=== PATIENT | female | born 1950 | race Caucasian/White ===

== ENCOUNTER 2016-05-04 20:20 | Emergency (ER) | payer OTHER ==
[2016-05-04] MEDS ORDERED: IPRATROPIUM/ALBUTEROL 3 ML NEB INH STA (20:36)
[2016-05-04] MEDS ORDERED: diltiaZEM INJ 5 MG/ML VIAL IVP STA (20:44)
[2016-05-04] MEDS ORDERED: IPRATROPIUM/ALBUTEROL 3 ML NEB INH ONE (20:52)
[2016-05-04] MEDS ORDERED: diltiaZEM INJ 5 MG/ML VIAL ONE (20:53)
[2016-05-04] MEDS ORDERED: PROPOFOL 200 MG/20 ML VIAL IVP ONE (21:47)
[2016-05-04] MEDS ORDERED: MIDAZOLAM 50 MG/10 ML VIAL ONE (21:47)
[2016-05-04] MEDS ORDERED: MIDAZOLAM 2 MG/2 ML VIAL IVP STA (21:50)
[2016-05-04] MEDS ORDERED: PROPOFOL 200 MG/20 ML VIAL IVP STA (21:51)
[2016-05-04] MEDS ORDERED: LEVALBUTEROL 1.25 MG INH STA (22:59)
[2016-05-04] MEDS ORDERED: LEVALBUTEROL 1.25 MG INH ONE (23:14)
== END 2016-05-05 00:04 | disposition home or self-care (01) ==
DX: I48.91 Unspecified atrial fibrillation (principal); J45.901 Unspecified asthma with (acute) exacerbation; I50.9 Heart failure, unspecified; Z79.01 Long term (current) use of anticoagulants
CPT/HCPCS: 36415; 71020; 80053; 81003; 83690; 83880; 84484; 85025; 85610; 92960; 93005; 93010; 94640; 96374; 99284; 99285; A9270; J7620

== ENCOUNTER 2016-09-05 14:27 | Outpatient (CLI) | payer OTHER ==
--- NOTE | 2016-09-15 15:42 | Mammography Report ---
DIGITAL SCREENING MAMMOGRAM: 09/05/2016 CLINICAL INDICATION: A 66-year-old with family history of breast cancer, history of benign right tressa ast biopsy for screening. COMPARISON: Films from [place], [place] dated 02/09/2015, [facility] dated 07/2013, 2012, 12/2010, 10/2008, 12/2006. TECHNIQUE: Routine CC and MLO projections were obtained of the breasts. FINDINGS: The breasts again demonstrate scattered fibroglandular densities bilaterally. Post-biopsy changes in the right breast are stable. No suspicious masses, clustered microcalcifications, or reg ions of architectural distortion are identified. IMPRESSION: BENIGN FINDINGS. RECOMMENDATION: Routine annual screening unless otherwise clinically indicated. BIRADS CATEGORY 2 - BENIGN FINDINGS. STANDARD QUALIFYING STATEMENTS 1. This examination was reviewed with the aid of Computer-Aided Detection (CAD). 2. A negative or benign imaging report should not delay biopsy if clinically suspicious findings are present. Consider surgical consultation if warranted. More than 5% of cancers are not identified by i maging. 3. Dense breasts may obscure an underlying neoplasm. JOB #: [id number] EXT JOB #:[id number]
== END 2016-09-05 14:28 | disposition home or self-care (01) ==
LOC: DI 14:27
PROVIDERS: ATTEND Physician Assistant Medical
DX: Z12.31 Encounter for screening mammogram for malignant neoplasm of breast (principal); Z80.3 Family history of malignant neoplasm of breast
CPT/HCPCS: 77067

== ENCOUNTER 2017-04-07 15:15 | Outpatient (CLI) | payer MEDICARE ==
[2017-04-07 15:56] LABS: T4 (THYROXINE) 5.55 ug/dL (6.09-12.23)
[2017-04-07 16:03] LABS: FREE T4 (FREE THYROXINE) 0.7 ng/dL (0.58-1.64)
== END 2017-04-07 15:16 | disposition home or self-care (01) ==
LOC: LAB 15:15
PROVIDERS: ATTEND Internal Medicine Cardiovascular Disease
DX: Z51.81 Encounter for therapeutic drug level monitoring (principal); Z79.899 Other long term (current) drug therapy
CPT/HCPCS: 36415; 84436; 84439; 84481

== ENCOUNTER 2017-11-10 09:16 | Outpatient (CLI) | payer MEDICARE ==
[2017-11-10 09:44] LABS: BASOPHILS # (AUTO) 0.1 10^3/uL (0.0-0.1); EOSINOPHILS # (AUTO) 0.1 10^3/uL (0.0-0.7); EOSINOPHILS % (AUTO) 2.4 %; HGB - HEMOGLOBIN 13.1 g/dL (12.0-16.0); LYMPHOCYTES # (AUTO) 1.8 10^3/uL (1.5-3.5); LYMPHOCYTES % (AUTO) 34.8 %; MEAN CORPUSCULAR HEMOGLOBIN 30.4 pg (27.0-31.0); MEAN CORPUSCULAR HGB CONC 33.7 g/dL (32.0-36.0); MEAN CORPUSCULAR VOLUME 90.2 fL (81.0-99.0); MEAN PLATELET VOLUME 8.4 fL (7.9-10.8); MONOCYTES # (AUTO) 0.5 10^3/uL (0.0-1.0); MONOCYTES % (AUTO) 9.8 %; NEUTROPHILS # (AUTO) 2.6 10^3/uL (1.5-6.6); PLT - PLATELET COUNT 271 10^3/uL (130-450); RED CELL DISTRIBUTION WIDTH 14.5 % (12.0-15.0); WHITE BLOOD COUNT 5.1 x10^3/uL (4.8-10.8)
[2017-11-10 10:04] LABS: ALBUMIN/GLOBULIN RATIO 1.5 (1.0-2.2); ALKALINE PHOSPHATASE 49 IU/L (42-121); ALT ALANINE AMINOTRANSFERASE 18 IU/L (10-60); AST ASPARTATE AMINOTRANSFERASE 16 IU/L (10-42); BILIRUBIN,TOTAL 0.5 mg/dL (0.2-1.0); BUN - BLOOD UREA NITROGEN 13 mg/dL (6-20); CALCIUM 9.2 mg/dL (8.5-10.3); CARBON DIOXIDE - CO2 29 mmol/L (21-32); CHLORIDE 103 mmol/L (101-111); CHOL/HDL RATIO 2.9 (<4.4); CHOLESTEROL 165 mg/dL; CREATININE 0.9 mg/dL (0.4-1.0); GFR - MDRD 62 (>89); GLUCOSE 99 mg/dL (70-100); HDL CHOLESTEROL 57 mg/dL; LDL CHOLESTEROL,CALCULATED 89 mg/dL; LDL/HDL RATIO 1.6 (<4.4); SODIUM 138 mmol/L (135-145); TOTAL PROTEIN 6.7 g/dL (6.7-8.2); VLDL CHOLESTEROL 19 mg/dL
[2017-11-11 10:01] LABS: HEPATITIS C ANTIBODY NON-REACTIVE (NON-REACTIVE)
== END 2017-11-10 09:17 | disposition home or self-care (01) ==
LOC: LAB 09:16
PROVIDERS: ATTEND Physician Assistant Medical
DX: Z79.899 Other long term (current) drug therapy (principal); E55.9 Vitamin D deficiency, unspecified; I48.91 Unspecified atrial fibrillation; D64.9 Anemia, unspecified; Z13.818 Encounter for screening for other digestive system disorders
CPT/HCPCS: 36415; 80053; 80061; 82306; 83721; 84443; 85025; 86803

== ENCOUNTER 2017-12-03 07:48 | Outpatient (CLI) | payer MEDICARE ==
--- NOTE | 2017-12-04 09:36 | Mammography Report ---
Reason: SCREENING MAMMO Procedure Date: 12/03/2017 Accession Number: [id number] / [id number] Procedure: TORI - Screening Mammo Dig Bilat CPT Code: FULL RESULT: EXAM: Screening Mammo Dig Bilat DATE: 12/03/2017 8:20 AM CLINICAL HISTORY: Screening mammogram TECHNIQUE: Bilateral CC and MLO views were obtained. COMPARISON: Mammogram 09/05/2016 FINDINGS: There are scattered fibroglandular densities. There are benign-appearing lymph nodes. No suspicious masses, clustered microcalcifications, or regions of architectural distortion are identified. IMPRESSION: Benign findings RECOMMENDATION: Routine annual screening unless otherwise clinically indicated. BIRADS CATEGORY 2: Benign findings STANDARD QUALIFYING STATEMENTS: 1. This examination was reviewed with the aid of Computer-Aided Detection (CAD). 2. A negative or benign imaging report should not delay biopsy if clinically suspicious findings are present. Consider surgical consultation if warrented. More than 5% of cancers are not identified by imaging. 3. Dense breasts may obscure an underlying neoplasm.
== END 2017-12-03 07:49 | disposition home or self-care (01) ==
LOC: DI 07:48
PROVIDERS: ATTEND Physician Assistant Medical
DX: Z12.31 Encounter for screening mammogram for malignant neoplasm of breast (principal)
CPT/HCPCS: 77067

== ENCOUNTER 2017-12-03 07:50 | Outpatient (CLI) | payer MEDICARE ==
--- NOTE | 2017-12-03 13:59 | Ultrasound Report ---
Reason: ELEVATED TSH Procedure Date: 12/03/2017 Accession Number: [id number] / [id number] Procedure: US - Head or Neck Soft Tissue CPT Code: FULL RESULT: EXAM: THYROID ULTRASOUND EXAM DATE: 12/03/2017 09:00 AM. CLINICAL HISTORY: ELEVATED TSH. COMPARISON: None. TECHNIQUE: Real time sonographic imaging of the thyroid was performed by the overcoil stepper. Multiple sales representative trainee static images were saved for review. FINDINGS: THYROID GLAND: Right Lobe: 4.4 x 2.0 x 1.8 cm, volume 8 cc. Normal background echotexture. Right Lobe Nodules: None. Left Lobe: 4.3 x 2.1 x 1.6 cm, volume 8 cc. Normal background echotexture. Left Lobe Nodules: Lower lobe 4 mm hypoechoic solid, smooth margins, wider than tall. No calcifications. Isthmus: 0.5 cm AP. Isthmic Nodules: None. LYMPH NODES: No adenopathy demonstrated in the central or lateral compartment. IMPRESSION: 4 mm left thyroid nodule Tirads 4. Moderately suspicious features but small size. FNA if greater than or equal to 1.5 cm. Follow if greater than or equal to 1 cm. Management recommendations are based on 2015 [place] [employer] Management Guidelines for Adult Patients with Thyroid Nodules and Differentiated Thyroid Cancer. RADIA
== END 2017-12-03 07:51 | disposition home or self-care (01) ==
LOC: DI 07:50
PROVIDERS: ATTEND Physician Assistant Medical
DX: E04.1 Nontoxic single thyroid nodule (principal)
CPT/HCPCS: 76536

== ENCOUNTER 2018-01-25 08:40 | Outpatient (CLI) | payer MEDICARE ==
[2018-01-25 14:44] LABS: THYROID STIMULATING HORMONE 5.8 uIU/mL (0.34-5.60)
== END 2018-01-25 08:41 | disposition home or self-care (01) ==
LOC: LAB.R 08:40
PROVIDERS: ATTEND Physician Assistant Medical
DX: E04.1 Nontoxic single thyroid nodule (principal); E03.9 Hypothyroidism, unspecified; Z79.899 Other long term (current) drug therapy
CPT/HCPCS: 84439; 84443; 84481

== ENCOUNTER 2018-02-03 15:17 | Outpatient (CLI) | payer MEDICARE ==
[2018-02-03 15:46] LABS: INR 2.9 (0.8-1.2); PT - PROTHROMBIN TIME 31.8 secs (9.9-12.6)
== END 2018-02-03 15:18 | disposition home or self-care (01) ==
LOC: LAB 15:17
PROVIDERS: ATTEND Internal Medicine
DX: Z79.01 Long term (current) use of anticoagulants (principal); I48.91 Unspecified atrial fibrillation
CPT/HCPCS: 36415; 85610

== ENCOUNTER 2018-02-09 14:29 | Outpatient (CLI) | payer MEDICARE | END 2018-02-09 14:30 | disposition home or self-care (01) | LOC: LAB 14:29 | PROVIDERS: ATTEND Internal Medicine | DX: Z79.01 Long term (current) use of anticoagulants (principal); I48.91 Unspecified atrial fibrillation | CPT/HCPCS: 85610 ==

== ENCOUNTER 2018-02-16 15:35 | Outpatient (CLI) | payer MEDICARE | END 2018-02-16 15:36 | disposition home or self-care (01) | LOC: LAB 15:35 | PROVIDERS: ATTEND Internal Medicine | DX: Z79.01 Long term (current) use of anticoagulants (principal); I48.91 Unspecified atrial fibrillation | CPT/HCPCS: 85610 ==

== ENCOUNTER 2018-03-08 08:00 | Outpatient (CLI) | payer MEDICARE ==
[2018-03-08 12:34] LABS: THYROID STIMULATING HORMONE 4.73 uIU/mL (0.34-5.60)
[2018-03-08 12:38] LABS: FREE T4 (FREE THYROXINE) 1.06 ng/dL (0.58-1.64)
== END 2018-03-08 23:59 | disposition home or self-care (01) ==
LOC: LAB.R 08:00
PROVIDERS: ATTEND Physician Assistant Medical
DX: E04.1 Nontoxic single thyroid nodule (principal); Z79.899 Other long term (current) drug therapy; E03.9 Hypothyroidism, unspecified
CPT/HCPCS: 84439; 84443; 84481

== ENCOUNTER 2018-05-11 08:00 | Outpatient (CLI) | payer MEDICARE | END 2018-05-11 23:59 | disposition home or self-care (01) | LOC: LAB.R 08:00 | PROVIDERS: ATTEND Physician Assistant Medical | DX: E03.9 Hypothyroidism, unspecified (principal); Z79.899 Other long term (current) drug therapy | CPT/HCPCS: 84443 ==

== ENCOUNTER 2018-05-21 15:32 | Outpatient (CLI) | payer MEDICARE ==
--- NOTE | 2018-05-22 23:55 | Ultrasound Report ---
Reason: THYROID NODULE,LEFT Procedure Date: 05/21/2018 Accession Number: [id number] / [id number] Procedure: US - Head or Neck Soft Tissue CPT Code: FULL RESULT: EXAM: THYROID ULTRASOUND EXAM DATE: 05/21/2018 04:39 PM. CLINICAL HISTORY: Left thyroid nodule COMPARISON: HEAD OR NECK SOFT TISSUE 12/03/2017 8:32 AM. TECHNIQUE: Real time sonographic imaging of the thyroid was performed by the lining machine tender. Multiple data entry representative static images were saved for review. FINDINGS: THYROID GLAND: Right Lobe: 3.6 x 1.7 x 1.8 cm, volume 5.8 cc. Normal background echotexture. Right Lobe Nodules: Isoechoic solid nodule, inferior pole, 0.9 x 0.6 x 0.9 cm, not seen on images from prior exam. Left Lobe: 3.6 x 1.2 x 1.6 cm, volume 3.6 cc. Normal background echotexture. Left Lobe Nodules: 1. Hypoechoic solid nodule, midportion, 0.3 x 0.2 x 0.2 cm, not seen on images from prior exam. 2. Hypoechoic solid nodule, inferior pole, 0.3 x 0.2 x 0.3 cm, previously 0.4 x 0.3 x 0.4 cm. Isthmus: 0.3 cm AP. Isthmic Nodules: None. LYMPH NODES: No adenopathy demonstrated in the central or lateral compartment. OTHER: None. IMPRESSION: Subcentimeter nodules, as detailed above, none of which meet criteria for tissue sampling with FNA. Management recommendations are based on 2015 [place] [employer] Management Guidelines for Adult Patients with Thyroid Nodules and Differentiated Thyroid Cancer. RADIA
== END 2018-05-21 15:33 | disposition home or self-care (01) ==
LOC: DI 15:32
PROVIDERS: ATTEND Physician Assistant Medical
DX: E04.1 Nontoxic single thyroid nodule (principal)
CPT/HCPCS: 76536

== ENCOUNTER 2018-06-30 16:59 | Outpatient (CLI) | payer MEDICARE ==
[2018-06-30 18:24] LABS: THYROID STIMULATING HORMONE 0.12 uIU/mL (0.34-5.60)
[2018-06-30 18:26] LABS: FREE T4 (FREE THYROXINE) 1.15 ng/dL (0.58-1.64)
== END 2018-06-30 17:00 | disposition home or self-care (01) ==
LOC: LAB 16:59
PROVIDERS: ATTEND Family Medicine
DX: E04.1 Nontoxic single thyroid nodule (principal); E03.9 Hypothyroidism, unspecified
CPT/HCPCS: 36415; 84439; 84443; 84481

== ENCOUNTER 2018-11-17 14:04 | Outpatient (CLI) | payer MEDICARE | END 2018-11-17 14:05 | disposition home or self-care (01) | LOC: LAB 14:04 | PROVIDERS: ATTEND Internal Medicine | DX: E03.9 Hypothyroidism, unspecified (principal) | CPT/HCPCS: 36415; 84443 ==

== ENCOUNTER 2018-11-30 09:57 | Outpatient (CLI) | payer MEDICARE ==
[2018-11-30 10:53] LABS: BASOPHILS % (AUTO) 0.8 %; EOSINOPHILS # (AUTO) 0.2 10^3/uL (0.0-0.7); EOSINOPHILS % (AUTO) 4.2 %; HGB - HEMOGLOBIN 13.3 g/dL (12.0-16.0); LYMPHOCYTES # (AUTO) 2.1 10^3/uL (1.5-3.5); LYMPHOCYTES % (AUTO) 40.6 %; MEAN CORPUSCULAR HEMOGLOBIN 30.4 pg (27.0-31.0); MEAN CORPUSCULAR HGB CONC 32.2 g/dL (32.0-36.0); MEAN CORPUSCULAR VOLUME 94.3 fL (81.0-99.0); MEAN PLATELET VOLUME 10.2 fL (7.9-10.8); MONOCYTES # (AUTO) 0.6 10^3/uL (0.0-1.0); MONOCYTES % (AUTO) 10.9 %; NEUTROPHILS # (AUTO) 2.2 10^3/uL (1.5-6.6); NEUTROPHILS % (AUTO) 43.5 %; PLT - PLATELET COUNT 274 10^3/uL (130-450); RED BLOOD COUNT 4.38 10^6/uL (4.20-5.40); RED CELL DISTRIBUTION WIDTH 13.6 % (12.0-15.0); WHITE BLOOD COUNT 5.1 x10^3/uL (4.8-10.8)
[2018-11-30 11:12] LABS: ALBUMIN/GLOBULIN RATIO 1.4 (1.0-2.2); ALKALINE PHOSPHATASE 49 IU/L (42-121); ALT ALANINE AMINOTRANSFERASE 16 IU/L (10-60); AST ASPARTATE AMINOTRANSFERASE 14 IU/L (10-42); BILIRUBIN,TOTAL 0.6 mg/dL (0.2-1.0); BUN - BLOOD UREA NITROGEN 20 mg/dL (6-20); CALCIUM 9.6 mg/dL (8.5-10.3); CARBON DIOXIDE - CO2 30 mmol/L (21-32); CHLORIDE 103 mmol/L (101-111); CHOL/HDL RATIO 3.4 (<4.4); CHOLESTEROL 181 mg/dL; CREATININE 1.1 mg/dL (0.4-1.0); GFR - MDRD 49 (>89); GLUCOSE 98 mg/dL (70-100); HDL CHOLESTEROL 54 mg/dL; LDL CHOLESTEROL,CALCULATED 112 mg/dL; LDL/HDL RATIO 2.1 (<4.4); SODIUM 141 mmol/L (135-145); TOTAL PROTEIN 6.8 g/dL (6.7-8.2); VLDL CHOLESTEROL 15 mg/dL
== END 2018-11-30 09:58 | disposition home or self-care (01) ==
LOC: LAB 09:57
PROVIDERS: ATTEND Family Medicine
DX: I48.91 Unspecified atrial fibrillation (principal); K21.9 Gastro-esophageal reflux disease without esophagitis; E03.9 Hypothyroidism, unspecified; G47.33 Obstructive sleep apnea (adult) (pediatric); M15.9 Polyosteoarthritis, unspecified; J45.909 Unspecified asthma, uncomplicated
CPT/HCPCS: 36415; 80053; 80061; 83721; 85025

== ENCOUNTER 2019-09-28 11:24 | Outpatient (CLI) | payer MEDICARE ==
[2019-09-28 12:00] LABS: CALCIUM 9.2 mg/dL (8.5-10.3); CREATININE 0.9 mg/dL (0.4-1.0)
== END 2019-09-28 11:25 | disposition home or self-care (01) ==
LOC: LAB 11:24
PROVIDERS: ATTEND Nurse Practitioner
DX: I48.91 Unspecified atrial fibrillation (principal)
CPT/HCPCS: 36415; 80048

== ENCOUNTER 2020-05-28 15:36 | Outpatient (CLI) | payer MEDICARE ==
--- NOTE | 2020-05-28 16:18 | Ultrasound Report ---
PROCEDURE: Head or Neck Soft Tissue INDICATIONS: L THYROID NODULE TECHNIQUE: Real-time scanning was performed of the thyroid gland, with image documentation. COMPARISON: 05/21/2018 FINDINGS: Right: Thyroid lobe measures 4.4 x 1.8 x 1.9 cm, and is homogeneous in echotexture. Left: Thyroid lobe measures 4.4 x 2.0 x 1.5 cm, and is homogenous in echotexture. Isthmus: 4 mm thick. Nodule number: One Location: Right lower pole Size: 0.9 x 0.7 x 0.9 cm. Previously 0.9 x 0.6 x 0.9 Composition: Solid Echogenicity: Hypoechoic Shape: wider than tall. Margins: Smooth Echogenic foci: None Total points: 4 ACR TI-RADS category: Moderately suspicious Nodule number: Two Location: Inferior pole of the left lobe Size: 0.4 x 0.3 x 0.5 cm. Composition: Solid Echogenicity: Hypoechoic Shape: wider than tall. Margins: Smooth Echogenic foci: None Total points: 4 ACR TI-RADS category: Moderately suspicious IMPRESSION: A pair of subcentimeter thyroid nodules, grossly unchanged in size. No further follow-up is necessary by consensus criteria below. ACR TI-RADS definitions and recommendations: TI-RADS 1 (benign): 0 points. FNA not needed. TI-RADS 2 (not suspicious): 2 points. FNA not needed. TI-RADS 3 (mildly suspicious): 3 points. ? FNA if 2.5 cm or larger, follow up if 1.5 cm or larger (at 1, 3, and 5 years). TI-RADS 4 (moderately suspicious): 4-6 points. ? FNA if 1.5 cm or larger, follow up if 1 cm or larger (at 1, 2, 3, and 5 years). TI-RADS 5 (highly suspicious): 7 points or more. ? FNA if 1 cm or larger, follow up if 0.5 cm or larger (every year for 5 years). Reviewed by: Haim Méndez MD on 05/28/2020 4:16 PM PST Approved by: Haim Méndez MD on 05/28/2020 4:16 PM PST Station ID: [id number]
== END 2020-05-28 15:37 | disposition home or self-care (01) ==
LOC: DI 15:36
PROVIDERS: ATTEND Family Medicine
DX: E04.2 Nontoxic multinodular goiter (principal)

== ENCOUNTER 2020-06-11 16:36 | Outpatient (CLI) | payer MEDICARE | END 2020-06-11 16:37 | disposition home or self-care (01) | LOC: COV 16:36 | PROVIDERS: ATTEND Ophthalmology | DX: Z01.812 Encounter for preprocedural laboratory examination (principal); H25.12 Age-related nuclear cataract, left eye; Z20.822 Contact with and (suspected) exposure to COVID-19 ==

== ENCOUNTER 2020-06-14 07:32 | Day surgery (SDC) | payer MEDICARE ==
[~2020-06-14 07:32] MED LIST: BRIMONIDINE 0.2% OPHTH DROPS 5 ML ONE; BSS/LIDOCAINE/EPINEPHRINE 1 ML SYRINGE ONE; EPINEPHrine 1 MG/ML AMP ONE; KETOROLAC 0.45% OPHTH DROPS ONE; PHENYLEPHRINE 2.5% OPHTH 2 ML DROPS ONE; PROPARACAINE 0.5% OPHTH DROPS 15 ML ONE; TIMOLOL 0.5% OPHTH DROPS ONE; TRIAMCIN/MOXIFLOX OPHTHALMIC 0.6 ML VIAL IO ONE; VANCOMYCIN OPHTHALMI 8MG/0.8ML 8 MG/0.8 ML SYRINGE IO ONE
[2020-06-14] MEDS ORDERED: LACTATED RINGERS 500 ML IV ONE (08:19)
--- NOTE | 2020-06-14 08:22 | ANESTHESIA ---
Pre-Anesthesia VS, & Labs - Diagnosis L nuclear sclerotic cataract - Procedure L extraction cataract w/IOL Vital Signs: Temp Pulse Resp BP Pulse Ox 35.9 C L 87 17 133/91 H 97 06/14/20 07:48 06/14/20 07:48 06/14/20 07:48 06/14/20 07:48 06/14/20 07:48 Height: 5 ft 2 in Weight (kg): 118 kg Body Mass Index: 47.5 BMI Classification: Morbidly Obese - NPO >8 hours - Is Patient ?: No - Lab Results Lab results reviewed: Yes Home Medications and Allergies Acetaminophen [Tylenol Extra Strength] 500 mg PO DAILY 05/04/16 Beclomethasone 80 Mcg [Qvar 80] 1 puffs INH BID 05/04/16 Benzonatate [Tessalon Perle] 100 mg PO TID 05/04/16 Diclofenac Sodium [Voltaren] 1 gm TOP DAILY 05/04/16 Eflornithine HCl [Vaniqa] 1 gm TOP DAILY 05/04/16 FLUoxetine [PROzac] 10 mg PO DAILY 05/04/16 Fluticasone [Flonase] 2 sprays YUSUF DAILY 05/04/16 Furosemide [Lasix] 20 mg PO ONCE 05/04/16 Guaifenesin [Mucinex] 600 mg PO DAILY 05/04/16 Levalbuterol Tartrate [Levalbuterol Tartrate Hfa] 05/04/16 Levalbuterol Tartrate [Levalbuterol Tartrate Hfa] 1 puffs INH DAILY 05/04/16 Levalbuterol Tartrate [Xopenex Hfa] 2 puffs INH Q6H 05/04/16 Loratadine [Claritin] 10 mg PO DAILY 05/04/16 Pantoprazole [Protonix] 40 mg PO DAILY 05/04/16 Potassium Chloride 10 meq PO DAILY 05/04/16 Sotalol [Betapace] 160 mg PO DAILY 05/04/16 Warfarin [Coumadin] 5 mg PO DAILY 05/04/16 estradioL [Estrace] 1 mg PO DAILY 05/04/16 raNITIdine [Zantac] 300 mg PO DAILY 05/04/16 Allergies/Adverse Reactions: Allergies Allergy/AdvReac Type Severity Reaction Status Date / Time codeine Allergy Unknown Verified 05/04/16 20:28 Anes History & Medical History - Anesthetic History Anesthesia Complications: reports: No previous complications Family history of Anesthesia Complications: Denies Family history of Malignant Hyperthermia: Denies - Medical History Cardiovascular: reports: Congestive heart failure, Atrial fibrillation, Murmur Pulmonary: reports: Pneumonia, Shortness of breath Gastrointestinal: reports: GERD Urinary: reports: None Musculoskeletal: reports: Fatigue Endocrine/Autoimmune: reports: None Blood Disorders: reports: Anemia Skin: reports: None Smoking Status: Never smoker - Surgical History Cardiothoracic: reports: Other Exam General: Alert, Oriented x3, Cooperative Dental: WNL Mouth Openin Fingerbreadth Neck Mobility: Normal Mallampati classification: II Thyromental Distance: 4-6 cm Respiratory: Lungs clear, Normal breath sounds Cardiovascular: Other (AF) Neurological: Normal speech Mental/Cognitive Status: Alert/Oriented X3, Normal for patient Plan Anesthesia Type: MAC Consent for Procedure(s) Verified and Reviewed: Yes Code Status: Attempt Resuscitation ASA classification: 3-Severe systemic disease Is this case an emergency?: No
[2020-06-14] MEDS ORDERED: MIDAZOLAM 2 MG/2 ML VIAL ONE (08:34)
[2020-06-14] MEDS ORDERED: BSS/LIDOCAINE/EPINEPHRINE 1 ML SYRINGE IO ONE (08:40)
[2020-06-14] MEDS ORDERED: TIMOLOL 0.5% OPHTH DROPS OPTH ONE (08:40)
[2020-06-14] MEDS ORDERED: CHONDR SULF/HYALURONATE SYRINGE IO ONE (08:40)
[2020-06-14] MEDS ORDERED: EPINEPHrine 1 MG/ML AMP IR ONE (08:40)
[2020-06-14] MEDS ORDERED: BRIMONIDINE 0.2% OPHTH DROPS 5 ML OPTH ONE (08:40)
[2020-06-14] MEDS ORDERED: TRIAMCIN/MOXIFLOX OPHTHALMIC 0.6 ML VIAL IO ONE (08:41)
[2020-06-14] MEDS ORDERED: PROPARACAINE 0.5% OPHTH DROPS 15 ML EACHEYE ONE (08:41)
[2020-06-14] MEDS ORDERED: VANCOMYCIN OPHTHALMI 8MG/0.8ML 8 MG/0.8 ML SYRINGE IO ONE (08:41)
[2020-06-14 09:13] VITALS: BP 118/70
--- NOTE | 2020-06-14 09:16 | OPERATIVE REPORT ---
DATE OF SERVICE: 06/14/2020 Physician: Mikie Davis MD PREOPERATIVE DIAGNOSIS: Chronic narrow angle glaucoma and cataract, left eye. This was her first cataract surgery. POSTOPERATIVE DIAGNOSIS: Chronic narrow angle glaucoma and cataract, left eye. This was her first cataract surgery. PROCEDURE: Phacoemulsification with posterior chamber intraocular lens implant, left eye. SURGEON: Mikie Davis MD. ANESTHESIA: Monitored anesthesia care. COMPLICATIONS: None. OPERATIVE INDICATIONS: This is a 69-year-old woman with progressive vision loss in the left eye and narrow angle glaucoma of the left eye with a 2+ nuclear sclerotic cataract and also poorly controlled glaucoma. Best corrected visual acuity was 20/25 with glare to 20/60 in the left eye. Indications for surgery were, as stated, chronic narrow angle glaucoma poorly controlled with medications and also an overall decrease in vision. She was consented at length concerning risks and benefits of cataract surgery, after which she expressed a desire to proceed with surgery. OPERATIVE PROCEDURE: The patient was taken into OR #3 and placed under monitored anesthesia care. A surgical timeout was conducted, confirming correct patient, correct procedure, and correct surgical site. She was given topical anesthesia and prepped and draped in the usual sterile fashion. The eye was entered at the 6 and 3 o'clock positions. Intracameral Shugarcaine was injected into the anterior chamber followed by Viscoat. A continuous-tear curvilinear capsulorrhexis was performed. The nucleus was hydrodissected and phacoemulsified. The cortex was evacuated using automated infusion and aspiration. Provisc was injected in the capsular bag and a 34.0 diopter toric intraocular lens inserted in the bag and rotated to axis 173 that was previously marked on the cornea in the PACU for IOL alignment. Infusion and aspiration were used to evacuate the viscoelastic materials. The eye was inflated to physiologic pressure using balanced salt solution and found to be watertight. Approximately 0.25 mL of a mixture of triamcinolone and moxifloxacin was injected transsclerally into the vitreous in the inferotemporal quadrant. An additional 0.55 mL of a mixture of triamcinolone, moxifloxacin, and vancomycin was injected subconjunctivally in the superior quadrant for infection and inflammation prophylaxis. Wound integrity was checked with Weck-Puja sponges, and the IOL was verified to still be at axis 173 at the end of the surgery. The patient was taken from the operating room in good condition and given postoperative instructions. TD: 06/14/2020 09:00 SIDDHARHT
--- NOTE | 2020-06-14 09:49 | ANESTHESIA POST OP EVALUATION ---
Anesthesia Post Eval - Post Anesthesia Eval Vitals: Last Vital Signs Temp 36.1 C L 06/14/20 09:12 Pulse 105 H 06/14/20 09:12 Resp 16 06/14/20 09:12 BP 118/70 06/14/20 09:12 Pulse Ox 98 06/14/20 09:12 CV Function Including HR & BP: positive: Stable Pain Control: positive: Satisfactory Nausea & Vomiting: positive: Negative Mental Status: positive: Baseline Respiratory Status: Airway Patent Hydration Status: Satisfactory Anesthesia Complications: positive: None
== END 2020-06-14 07:33 | disposition home or self-care (01) ==
LOC: SDS 07:32
PROVIDERS: ATTEND Ophthalmology
DX: H25.12 Age-related nuclear cataract, left eye (principal); H40.20X0 Unspecified primary angle-closure glaucoma, stage unspecified; I48.91 Unspecified atrial fibrillation; I48.92 Unspecified atrial flutter; I50.9 Heart failure, unspecified; J45.909 Unspecified asthma, uncomplicated; Z79.01 Long term (current) use of anticoagulants; E66.01 Morbid (severe) obesity due to excess calories; Z68.42 Body mass index [BMI] 45.0-49.9, adult
CPT/HCPCS: 66984; A9270; J3490; J7120; V2632; V2787

== ENCOUNTER 2020-07-11 11:23 | Outpatient (CLI) | payer MEDICARE ==
--- NOTE | 2020-07-12 11:13 | Mammography Report ---
BILATERAL DIGITAL SCREENING MAMMOGRAM 3D/2D: 07/11/2020 CLINICAL: Routine screening. Routine screening. Comparison is made to exams dated: 12/03/2017 mammogram, 09/05/2016 mammogram - [facility], and 02/09/2015 mammogram - [facility]. There are scattered fibro glandular elements in both breasts. No significant masses, calcifications, or other findings are seen in either breast. There has been no significant interval change. IMPRESSION: NEGATIVE There is no mammographic evidence of malignancy. A 1 year screening mammogram is recommended. This exam was interpreted at Station ID: [id number]. NOTE: For mammograms, a report in lay terms will be sent to the patient. Approximately 15% of breast malignancies will not be visualized mammographically. In the management of a palpable breast mass, a negative mammogram must not discourage biopsy of a clinically suspicious lesion. Electronically Signed By: Chris Teresa M.D. ar/penrad:07/11/2020 13:01:07 ACR BI-RADS Category 1: Negative 3341F PARENCHYMAL PATTERN: (A) - The breast(s) demonstrate(s) scattered fibroglandular densities. BI-RADS CATEGORY: (1) - 1 RECOMMENDATION: (ANNUAL) - Recommend routine annual screening mammography. [id number] 1 year screening LATERALITY: (B)
== END 2020-07-11 11:24 | disposition home or self-care (01) ==
LOC: DI 11:23
PROVIDERS: ATTEND Family Medicine
DX: Z12.31 Encounter for screening mammogram for malignant neoplasm of breast (principal)

== ENCOUNTER 2020-07-23 20:25 | Outpatient (CLI) | payer MEDICARE | END 2020-07-23 20:26 | disposition home or self-care (01) | LOC: COV 20:25 | PROVIDERS: ATTEND Ophthalmology | DX: Z01.812 Encounter for preprocedural laboratory examination (principal); H25.11 Age-related nuclear cataract, right eye; Z20.822 Contact with and (suspected) exposure to COVID-19 ==

== ENCOUNTER 2020-07-26 07:00 | Day surgery (SDC) | payer MEDICARE ==
[~2020-07-26 07:00] MED LIST changes: -BRIMONIDINE 0.2% OPHTH DROPS 5 ML ONE; -BSS/LIDOCAINE/EPINEPHRINE 1 ML SYRINGE ONE; -EPINEPHrine 1 MG/ML AMP ONE; -PHENYLEPHRINE 2.5% OPHTH 2 ML DROPS ONE; -TIMOLOL 0.5% OPHTH DROPS ONE; -TRIAMCIN/MOXIFLOX OPHTHALMIC 0.6 ML VIAL IO ONE; -VANCOMYCIN OPHTHALMI 8MG/0.8ML 8 MG/0.8 ML SYRINGE IO ONE
[2020-07-26] MEDS ORDERED: EPINEPHrine 1 MG/ML AMP ONE (07:18)
[2020-07-26] MEDS ORDERED: TRIAMCIN/MOXIFLOX OPHTHALMIC 0.6 ML VIAL IO ONE ×2 (07:18→08:12)
[2020-07-26] MEDS ORDERED: VANCOMYCIN OPHTHALMI 8MG/0.8ML 8 MG/0.8 ML SYRINGE IO ONE ×2 (07:18→08:13)
[2020-07-26] MEDS ORDERED: CYCLOPENTOLATE 1% OPHTH DROPS 2 ML RIGHTEYE ONE (07:18)
[2020-07-26] MEDS ORDERED: BSS/LIDOCAINE/EPINEPHRINE 1 ML SYRINGE ONE (07:18)
[2020-07-26] MEDS ORDERED: PHENYLEPHRINE 2.5% OPHTH 2 ML DROPS RIGHTEYE ONE (07:18)
[2020-07-26] MEDS ORDERED: TIMOLOL 0.5% OPHTH DROPS ONE (07:18)
[2020-07-26] MEDS ORDERED: BRIMONIDINE 0.2% OPHTH DROPS 5 ML ONE (07:18)
[2020-07-26] MEDS ORDERED: LACTATED RINGERS 500 ML IV ONE ×2 (07:28→08:31)
[2020-07-26] MEDS ORDERED: MIDAZOLAM 2 MG/2 ML VIAL ONE (07:38)
--- NOTE | 2020-07-26 07:40 | ANESTHESIA ---
Pre-Anesthesia VS, & Labs - Diagnosis right nuclear sclerotic cataract - Procedure right cataract extraction with IOL Vital Signs: Temp Pulse Resp BP Pulse Ox 36.2 C L 105 H 16 141/100 H 97 07/26/20 07:06 07/26/20 07:06 07/26/20 07:06 07/26/20 07:06 07/26/20 07:06 Height: 5 ft 2 in Weight (kg): 112.6 kg Body Mass Index: 45.3 BMI Classification: Morbidly Obese - NPO >8 hours - Is Patient ?: No Home Medications and Allergies Acetaminophen [Tylenol Extra Strength] 500 mg PO DAILY 05/04/16 Beclomethasone 80 Mcg [Qvar 80] 1 puffs INH BID 05/04/16 Benzonatate [Tessalon Perle] 100 mg PO TID 05/04/16 Diclofenac Sodium [Voltaren] 1 gm TOP DAILY 05/04/16 Eflornithine HCl [Vaniqa] 1 gm TOP DAILY 05/04/16 FLUoxetine [PROzac] 10 mg PO DAILY 05/04/16 Fluticasone [Flonase] 2 sprays YUSUF DAILY 05/04/16 Furosemide [Lasix] 20 mg PO ONCE 05/04/16 Guaifenesin [Mucinex] 600 mg PO DAILY 05/04/16 Levalbuterol Tartrate [Levalbuterol Tartrate Hfa] 05/04/16 Levalbuterol Tartrate [Levalbuterol Tartrate Hfa] 1 puffs INH DAILY 05/04/16 Levalbuterol Tartrate [Xopenex Hfa] 2 puffs INH Q6H 05/04/16 Loratadine [Claritin] 10 mg PO DAILY 05/04/16 Pantoprazole [Protonix] 40 mg PO DAILY 05/04/16 Potassium Chloride 10 meq PO DAILY 05/04/16 Sotalol [Betapace] 160 mg PO DAILY 05/04/16 Warfarin [Coumadin] 5 mg PO DAILY 05/04/16 estradioL [Estrace] 1 mg PO DAILY 05/04/16 raNITIdine [Zantac] 300 mg PO DAILY 05/04/16 Allergies/Adverse Reactions: Allergies Allergy/AdvReac Type Severity Reaction Status Date / Time codeine Allergy Unknown Verified 05/04/16 20:28 Anes History & Medical History - Anesthetic History Anesthesia Complications: reports: No previous complications - Medical History Cardiovascular: reports: Congestive heart failure, Atrial fibrillation (s/p ablation), Murmur Pulmonary: reports: Pneumonia, Shortness of breath, Sleep apnea, CPAP use Gastrointestinal: reports: GERD Urinary: reports: None Neuro: reports: None Musculoskeletal: reports: Fatigue Endocrine/Autoimmune: reports: None Blood Disorders: reports: Anemia Skin: reports: None Smoking Status: Never smoker Psychosocial: reports: Depression History of Cancer?: No - Surgical History General: reports: Cholecystectomy Cardiothoracic: reports: Other Gynecologic: reports: Hysterectomy Exam General: Alert, Oriented x3, Cooperative, No acute distress Dental: WNL Mouth Openin Fingerbreadth Neck Mobility: Normal Mallampati classification: II Thyromental Distance: 4-6 cm Mental/Cognitive Status: Alert/Oriented X3, Normal for patient Plan Anesthesia Type: MAC Consent for Procedure(s) Verified and Reviewed: Yes Code Status: Attempt Resuscitation ASA classification: 3-Severe systemic disease Is this case an emergency?: No
[2020-07-26] MEDS ORDERED: BRIMONIDINE 0.2% OPHTH DROPS 5 ML OPTH ONE (08:11)
[2020-07-26] MEDS ORDERED: BSS/LIDOCAINE/EPINEPHRINE 1 ML SYRINGE IO ONE (08:12)
[2020-07-26] MEDS ORDERED: EPINEPHrine 1 MG/ML AMP IR ONE (08:12)
[2020-07-26] MEDS ORDERED: TIMOLOL 0.5% OPHTH DROPS OPTH ONE (08:12)
[2020-07-26] MEDS ORDERED: CHONDR SULF/HYALURONATE SYRINGE IO ONE (08:12)
[2020-07-26] MEDS ORDERED: PROPARACAINE 0.5% OPHTH DROPS 15 ML EACHEYE ONE (08:13)
[2020-07-26 08:48] VITALS: BP 130/78
--- NOTE | 2020-07-26 09:28 | OPERATIVE REPORT ---
DATE OF SERVICE: 07/26/2020 Physician: Mikie Davis MD PREOPERATIVE DIAGNOSIS: Visually significant cataract, right eye and also narrow angle glaucoma, the primary reason for surgery. Cataract surgery was performed for the same indication in the left eye on 06/14/2020. POSTOPERATIVE DIAGNOSIS: Visually significant cataract, right eye and also narrow angle glaucoma, th e primary reason for surgery. Cataract surgery was performed for the same indication in the left eye on 06/14/2020. PROCEDURE: Phacoemulsification with posterior chamber intraocular lens implant, right eye. SURGEON: Mikie Davis III, MD ANESTHESIA: Monitored anesthesia care. COMPLICATIONS: None. OPERATIVE INDICATIONS: This is a 69-year-old woman with progressive vision loss in the right eye due to a 2+ nuclear sclerotic cataract. Best corrected visual acuity was 20/25 with glare to 20/50 in t he right eye. Indications for surgery were angle closure glaucoma as stated before and also an overa ll decrease in vision. She was consented at length concerning risks and benefits of cataract surgery both first cataract and for relieving narrow angle glaucoma and she expressed a desire to proceed wi th surgery. OPERATIVE PROCEDURE: The patient was taken into OR #3 and placed under monitored anesthesia care. A surgical timeout was conducted, confirming correct patient, correct procedure and correct surgical s ite. She was given topical anesthesia and prepped and draped in the usual sterile fashion. The eye was entered at the 12 and 9 o'clock positions. Intracameral Shugarcaine was injected into the anteri or chamber followed by Viscoat. A continuous-tear curvilinear capsulorrhexis was performed. The nuc leus was hydrodissected and phacoemulsified. The cortex was evacuated using automated infusion and a spiration. Provisc was injected in the capsular bag and a 34.0 diopter intraocular lens inserted int o the bag. Infusion and aspiration were used to evacuate the viscoelastic materials. The eye was in flated to physiologic pressure using balanced salt solution and found to be watertight. Approximatel y 0.25 mL of a mixture of triamcinolone and moxifloxacin was injected transsclerally into the vitreou s in the inferotemporal quadrant. An additional 0.55 mL of a mixture of triamcinolone, moxifloxacin and vancomycin was injected subconjunctivally in the superior quadrant for infection and inflammation prophylaxis. Wound integrity was checked with Weck-Puja sponges. The patient was taken from the ope rating room in good condition and given postoperative instructions. TD: 07/26/2020 09:00
--- NOTE | 2020-07-26 13:14 | ANESTHESIA POST OP EVALUATION ---
Anesthesia Post Eval - Post Anesthesia Eval Vitals: Last Vital Signs Temp 36.2 C L 07/26/20 08:47 Pulse 97 07/26/20 08:47 Resp 16 07/26/20 08:47 BP 130/78 07/26/20 08:47 Pulse Ox 98 07/26/20 08:47 CV Function Including HR & BP: Stable Pain Control: Satisfactory Nausea & Vomiting: Negative Mental Status: Baseline Respiratory Status: Airway Patent Hydration Status: Satisfactory Anesthesia Complications: None
== END 2020-07-26 07:01 | disposition home or self-care (01) ==
LOC: SDS 07:00
PROVIDERS: ATTEND Ophthalmology
DX: H25.11 Age-related nuclear cataract, right eye (principal); H40.211 Acute angle-closure glaucoma, right eye; I48.91 Unspecified atrial fibrillation; J45.909 Unspecified asthma, uncomplicated; I48.92 Unspecified atrial flutter; Z79.01 Long term (current) use of anticoagulants; E66.01 Morbid (severe) obesity due to excess calories; Z68.42 Body mass index [BMI] 45.0-49.9, adult; G47.30 Sleep apnea, unspecified
CPT/HCPCS: 66984; A9270; J3490; J7120

== ENCOUNTER 2021-10-03 11:34 | Outpatient (CLI) | payer MEDICARE ==
[2021-10-03 11:52] LABS: BASOPHILS # (AUTO) 0.1 10^3/uL (0.0-0.1); BASOPHILS % (AUTO) 0.9 %; EOSINOPHILS # (AUTO) 0.3 10^3/uL (0.0-0.7); EOSINOPHILS % (AUTO) 4.5 %; HCT - HEMATOCRIT 42.4 % (37.0-47.0); HGB - HEMOGLOBIN 13.7 g/dL (12.0-16.0); LYMPHOCYTES # (AUTO) 1.8 10^3/uL (1.5-3.5); LYMPHOCYTES % (AUTO) 31.7 %; MEAN CORPUSCULAR HEMOGLOBIN 30.2 pg (27.0-31.0); MEAN CORPUSCULAR HGB CONC 32.3 g/dL (32.0-36.0); MEAN CORPUSCULAR VOLUME 93.4 fL (81.0-99.0); MEAN PLATELET VOLUME 9.6 fL (7.9-10.8); MONOCYTES # (AUTO) 0.5 10^3/uL (0.0-1.0); MONOCYTES % (AUTO) 9.5 %; NEUTROPHILS % (AUTO) 53.2 %; PLT - PLATELET COUNT 306 10^3/uL (130-450); RED BLOOD COUNT 4.54 10^6/uL (4.20-5.40); RED CELL DISTRIBUTION WIDTH 13.6 % (12.0-15.0); WHITE BLOOD COUNT 5.6 x10^3/uL (4.8-10.8)
[2021-10-03 12:24] LABS: THYROID STIMULATING HORMONE 2.06 uIU/mL (0.34-5.60)
[2021-10-03 12:32] LABS: ALBUMIN 4.4 g/dL (3.2-5.5); ALBUMIN/GLOBULIN RATIO 1.6 (1.0-2.2); ALKALINE PHOSPHATASE 54 IU/L (42-121); ALT ALANINE AMINOTRANSFERASE 18 IU/L (10-60); AST ASPARTATE AMINOTRANSFERASE 17 IU/L (10-42); BILIRUBIN,TOTAL 0.6 mg/dL (0.2-1.0); BUN - BLOOD UREA NITROGEN 18 mg/dL (6-20); CALCIUM 9.7 mg/dL (8.5-10.3); CARBON DIOXIDE - CO2 26 mmol/L (21-32); CHLORIDE 105 mmol/L (101-111); CHOL/HDL RATIO 4.4 (<4.4); CHOLESTEROL 222 mg/dL; CREATININE 0.9 mg/dL (0.4-1.0); GFR - MDRD 62 (>89); GLUCOSE 104 mg/dL (70-100); HDL CHOLESTEROL 51 mg/dL; LDL CHOLESTEROL,CALCULATED 145 mg/dL; LDL/HDL RATIO 2.8 (<4.4); POTASSIUM 4.4 mmol/L (3.5-5.0); SODIUM 139 mmol/L (135-145); TOTAL PROTEIN 7.1 g/dL (6.7-8.2); TRIGLYCERIDES 129 mg/dL; VLDL CHOLESTEROL 26 mg/dL
== END 2021-10-03 11:35 | disposition home or self-care (01) ==
LOC: LAB 11:34
PROVIDERS: ATTEND Family Medicine
DX: E66.01 Morbid (severe) obesity due to excess calories (principal); I48.91 Unspecified atrial fibrillation; K21.9 Gastro-esophageal reflux disease without esophagitis; E03.9 Hypothyroidism, unspecified; K58.9 Irritable bowel syndrome, unspecified; M15.9 Polyosteoarthritis, unspecified; J45.909 Unspecified asthma, uncomplicated; E55.9 Vitamin D deficiency, unspecified; F41.9 Anxiety disorder, unspecified; F32.A Depression, unspecified
CPT/HCPCS: 36415; 80053; 80061; 82306; 83721; 84443; 85025

== ENCOUNTER 2022-07-18 14:03 | Outpatient (CLI) | payer MEDICARE ==
--- NOTE | 2022-07-21 09:24 | Mammography Report ---
BILATERAL DIGITAL SCREENING MAMMOGRAM 3D/2D WITH CLEAVAGE: 07/18/2022 CLINICAL: Routine screening. Comparison is made to exams dated: 07/11/2020 mammogram, 12/03/2017 mammogram, 12/03/2017 mammogram, an d 09/05/2016 mammogram - [facility]. There are scattered areas of fibroglandular density in both breasts (category b / 25%-50% glandular t issue). No significant masses, calcifications, or other findings are seen in either breast. There has been no significant interval change. IMPRESSION: NEGATIVE There is no mammographic evidence of malignancy. A 1 year screening mammogram is recommended. Based on the Tyrer Cuzick model (a risk assessment model) the patients lifetime risk is 11.1% and he r 10 year risk is 8.4%. According to the ACR, ACS, and NCCN guidelines, an annual breast MRI exam jason ng with mammogram is recommended if the patients lifetime risk is 20% or greater. This exam was interpreted at Station ID: [id number]. NOTE: For mammograms, a report in lay terms will be sent to the patient. Approximately 15% of breast malignancies will not be visualized mammographically. In the management of a palpable breast mass, a negative mammogram must not discourage biopsy of a clinically suspicious lesion. Electronically Signed By: Jaime cruz/caro:07/18/2022 17:01:58 letter sent: No_Letter ACR BI-RADS Category 1: Negative 3341F PARENCHYMAL PATTERN: (A) - The breast(s) demonstrate(s) scattered fibroglandular densities. BI-RADS CATEGORY: (1) - 1 Mammogram [id number] 1 year screening LATERALITY: (B)
== END 2022-07-18 14:04 | disposition home or self-care (01) ==
LOC: DI 14:03
DX: Z12.31 Encounter for screening mammogram for malignant neoplasm of breast (principal)

== ENCOUNTER 2023-06-24 16:40 | Outpatient (CLI) | payer MEDICARE ==
--- NOTE | 2023-06-24 19:40 | XRAY Report ---
PROCEDURE: Knee 3V RT INDICATIONS: PAIN IN RIGHT KNEE TECHNIQUE: 3 views of the knee(s) were acquired. COMPARISON: None. FINDINGS: Bones: No fractures or dislocations. Mild to moderate tricompartmental osteoarthritis is seen most n otably in medial femoral tibial compartment. No significant patellar subluxation. No suspicious bony lesions. Soft tissues: Small knee joint effusion. No suspicious soft tissue calcifications or masses. IMPRESSION: No acute bony abnormality. [id number] tricompartmental osteoarthritis and small joint effusion. Reviewed by: Wero Petersen MD on 06/24/2023 7:38 PM PDT Approved by: Wero Petersen MD on 06/24/2023 7:38 PM PDT Station ID: [id number]
== END 2023-06-24 16:41 | disposition home or self-care (01) ==
LOC: DI 16:40
PROVIDERS: ATTEND Physician Assistant Medical
DX: M17.11 Unilateral primary osteoarthritis, right knee (principal); M25.461 Effusion, right knee

== ENCOUNTER 2023-08-20 08:42 | Outpatient (CLI) | payer MEDICARE ==
[2023-08-20 08:56] LABS: BASOPHILS # (AUTO) 0.1 10^3/uL (0.0-0.1); BASOPHILS % (AUTO) 1.1 %; EOSINOPHILS # (AUTO) 0.3 10^3/uL (0.0-0.7); EOSINOPHILS % (AUTO) 4.7 %; HCT - HEMATOCRIT 40.4 % (37.0-47.0); HGB - HEMOGLOBIN 12.4 g/dL (12.0-16.0); LYMPHOCYTES # (AUTO) 2.5 10^3/uL (1.5-3.5); LYMPHOCYTES % (AUTO) 39.5 %; MEAN CORPUSCULAR HEMOGLOBIN 29.3 pg (27.0-31.0); MEAN CORPUSCULAR HGB CONC 30.7 g/dL (32.0-36.0); MEAN CORPUSCULAR VOLUME 95.5 fL (81.0-99.0); MEAN PLATELET VOLUME 9.4 fL (7.9-10.8); MONOCYTES # (AUTO) 0.7 10^3/uL (0.0-1.0); MONOCYTES % (AUTO) 10.6 %; NEUTROPHILS # (AUTO) 2.7 10^3/uL (1.5-6.6); NEUTROPHILS % (AUTO) 43.9 %; PLT - PLATELET COUNT 323 10^3/uL (130-450); RED BLOOD COUNT 4.23 10^6/uL (4.20-5.40); RED CELL DISTRIBUTION WIDTH 13.7 % (12.0-15.0); WHITE BLOOD COUNT 6.2 x10^3/uL (4.8-10.8)
[2023-08-20 09:25] LABS: ALBUMIN 4.4 g/dL (3.2-5.5); ALBUMIN/GLOBULIN RATIO 1.8 (1.0-2.2); ALKALINE PHOSPHATASE 49 IU/L (42-121); ALT ALANINE AMINOTRANSFERASE 22 IU/L (10-60); AST ASPARTATE AMINOTRANSFERASE 19 IU/L (10-42); BILIRUBIN,TOTAL 0.4 mg/dL (0.2-1.0); BUN - BLOOD UREA NITROGEN 23 mg/dL (6-20); CALCIUM 9.8 mg/dL (8.5-10.3); CARBON DIOXIDE - CO2 25 mmol/L (21-32); CHLORIDE 105 mmol/L (101-111); CHOL/HDL RATIO 3.6 (<4.4); CHOLESTEROL 193 mg/dL; CREATININE 1.1 mg/dL (0.6-1.3); GFR - MDRD 49 (>89); GLUCOSE 104 mg/dL (74-104); HDL CHOLESTEROL 53 mg/dL; LDL CHOLESTEROL,CALCULATED 110 mg/dL; LDL/HDL RATIO 2.1 (<4.4); POTASSIUM 4.6 mmol/L (3.5-4.5); SODIUM 136 mmol/L (135-145); TOTAL PROTEIN 6.9 g/dL (6.4-8.9); TRIGLYCERIDES 149 mg/dL (48-352); VLDL CHOLESTEROL 30 mg/dL
[2023-08-20 09:39] LABS: THYROID STIMULATING HORMONE 3.37 uIU/mL (0.34-5.60)
== END 2023-08-20 08:43 | disposition home or self-care (01) ==
LOC: LAB 08:42
PROVIDERS: ATTEND Family Medicine
DX: I48.91 Unspecified atrial fibrillation (principal); J45.909 Unspecified asthma, uncomplicated; M54.16 Radiculopathy, lumbar region; E03.9 Hypothyroidism, unspecified; E66.3 Overweight; G47.33 Obstructive sleep apnea (adult) (pediatric); E55.9 Vitamin D deficiency, unspecified; F41.9 Anxiety disorder, unspecified; F32.A Depression, unspecified
CPT/HCPCS: 36415; 80053; 80061; 83721; 84443; 85025